=== PATIENT | male | born 1960 | race Caucasian/White ===

== ENCOUNTER → 2018-05-18 20:16 | Outpatient (CLI) | payer MEDICAID, SELFPAY | PROVIDERS: Referring Provider Nurse Practitioner Family | DX: G47.30 Sleep apnea, unspecified (principal) | CPT/HCPCS: 95810 ==

== ENCOUNTER 2018-05-26 13:49 | Emergency (ER) | payer MEDICAID, SELFPAY ==
[2018-05-26 13:49] VITALS: BP 145/101
[2018-05-26 13:50] VITALS: BP 162/102; PULSE 84; RESP 16; TEMP 36.7; O2SAT 95; BMI 31.1
[2018-05-26 14:38] VITALS: BP 169/100; PULSE 80; O2SAT 95
--- NOTE | 2018-05-26 15:23 | EKG12_ITS ---
Test Reason : HYPERTENSION/SOB Blood Pressure : / mmHG Vent. Rate : 074 BPM Atrial Rate : 074 BPM P-R Int : 164 ms QRS Dur : 106 ms QT Int : 404 ms P-R-T Axes : 070 080 049 degrees QTc Int : 448 ms Normal sinus rhythm Normal ECG Confirmed by CAMERON HAN, BRIANNA ([id number]), material expeditor BRITTNEY GALDAMEZ ([id number]) on 05/30/2018 9:17:13 AM Referred By: Valeria Tian Confirmed By:BRIANNA BARNES MD
--- NOTE | 2018-05-26 15:23 | CT_ITS ---
STUDY: CT BRAIN WITHOUT CONTRAST REASON FOR EXAM: Male, 58 years old. DISI. Hypertension. RADIATION DOSAGE (If Supplied By Facility): CTDIvol = ( 60.81 ) mGy, DLP = ( 1158.30 ) mGycm TECHNIQUE: Transaxial CT imaging of the brain was performed without administration of intravenous contrast material. Individualized dose optimization techniques were used for this CT. COMPARISON: None. FINDINGS: There is no acute bleed or infarct. There are normal white matter tracts. The ventricles are normal in configuration. There is no hydrocephalus. The visualized paranasal sinuses are clear. There are bilateral mastoid effusions. There is no skull fracture. CT/Brain/Head without Contrast IMPRESSION: No acute intracranial abnormality. Bilateral mastoid effusions. Electronically Signed: Alex Tripp, at 16:31 EST Tel , Service support ,
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
[2018-05-26 16:40] LABS: Absolute Lymphocyte Count 1.85 X10^3/ul (0.83-4.51); Absolute Neutrophil Count 2.7 X10^3/uL (2.0-7.7); Basophil# 0.03 X10^3/uL; Basophil% 0.6 % (0-1); Eosinophil# 0.19 X10^3/uL; Eosinophils% 3.6 % (0-5); Hematocrit 44.7 % (40-54); Hemoglobin 15.2 g/dl (13.0-16.5); Lymphocyte # 1.85 X10^3/ul (4.0); Lymphocyte % 35.1 % (19-41); Mean Corpuscular Hgb 30.8 pg (27.0-32.0); Mean Corpuscular Volume 90.5 fL (80-94); Mean Platelet Vol. 10.7 fl (6.2-12.0); Monocyte# 0.49 X10^3/uL; Monocyte% 9.3 % (0-10); Neutrophil % 51.2 % (47-70); Platelet Count 269 K/mm3 (150-450); RBC Distribution Width CV 13.8 % (11.6-14.6); RBC Distribution Width SD 45.3 fl (35.1-43.9); Red Blood Count 4.94 M/mm3 (4.6-6.2); White Blood Count 5.3 K/mm3 (4.4-11.0)
[2018-05-26 16:41] LABS: POSITIVE COUNT NO; POSITIVE DIFFERENTIAL NO; POSITIVE MORPHOLOGY NO
[2018-05-26 16:53] VITALS: BP 168/98; PULSE 86; RESP 29; O2SAT 94
[2018-05-26 16:53] LABS: AST(SGOT) 13 U/L (15-37); Alanine Aminotransfer ALT/SGPT 27 U/L (16-61); Alkaline Phosphatase 118 U/L (45-117); Anion Gap 7 (5-15); BUN 21 mg/dL (7-18); BUN/Creat Ratio 18.4 RATIO (10-20); Calcium,Total 9.5 mg/dL (8.5-10.1); Chloride 105 mmol/L (98-107); Creatinine, Serum 1.14 mg/dL (0.70-1.30); EST Glomerular Filtration Rate 70 mL/min (>60); Est Glom Filt Rate - Afr Amer 85 mL/min (>60); Estimated Creatinine Clearance 83.12 ml/min; Globulin 4.1 g/dL (2.2-4.2); Glucose 84 mg/dL (74-106); Potassium 4.3 mmol/L (3.5-5.1); Protein, Total 8.1 g/dL (6.4-8.2); Sodium Level 140 mmol/L (136-145)
[2018-05-26 17:02] LABS: Bacteria 0 SEEN /hpf (None Seen); Mucous, Urine 0 SEEN /hpf (<or=2+); Red Blood Cells-Urine 0 SEEN /hpf (0-5); Squamous Epithelial Cells - UA 0 SEEN /hpf (0-5); White Blood Cells 0 SEEN /hpf (0-5)
[2018-05-26 17:15] LABS: Color, Urine Yellow (Yellow); Glucose, Dipstick Normal (Normal); Ketone-Dipstick Negative (Negative); Leukocyte Esterase-Dipstick Negative /ul (Negative); Nitrite-Dipstick Negative (Negative); Occult Blood-Urine 25 /ul (Negative); Protein-Dipstick Negative (Negative); Specific Gravity, Urine 1.025 (1.002-1.030); Urine Bilirubin Dipstick Negative (Negative); Urine Clarity Clear (Clear); Urine Urobilinogen Normal (Normal)
[2018-05-26 18:16] VITALS: BP 156/93; PULSE 83; RESP 16; O2SAT 94
== END 2018-05-26 18:17 | disposition home or self-care (01) ==
PROVIDERS: Emergency Provider Emergency Medicine; Family Provider Nurse Practitioner Family; PCP Nurse Practitioner Family
DX: I10 Essential (primary) hypertension (principal); H74.8X3 Other specified disorders of middle ear and mastoid, bilateral; H92.03 Otalgia, bilateral; R11.2 Nausea with vomiting, unspecified; R06.02 Shortness of breath; M54.2 Cervicalgia; F41.9 Anxiety disorder, unspecified; G47.30 Sleep apnea, unspecified; Z72.0 Tobacco use; Z79.899 Other long term (current) drug therapy
CPT/HCPCS: 70450; 80053; 81001; 85025; 93005; 99284; A4216

== ENCOUNTER → 2018-05-29 13:02 | Outpatient (CLI) | payer MEDICAID, SELFPAY ==
[2018-05-26 13:50] VITALS: BMI 31.1
--- NOTE | 2018-05-29 13:07 | RAD_ITS ---
STUDY: X-RAY - ORBITS REASON FOR EXAM: Male, 58 years old. This study is being performed as a clearance examination for exclusion of orbital metal, prior to the performance of an MRI examination. TECHNIQUE: 2 view(s) of the orbits were obtained. COMPARISON: None. FINDINGS: Normal bilateral orbits without a metallic orbital foreign body. Normal visualized facial bones. Normal paranasal sinuses. The soft tissue structures are unremarkable. RAD/Orbits for Foreign Body IMPRESSION: No demonstrated metallic orbital foreign body. The patient is cleared for an MRI examination. Electronically Signed: Bebo Shaw MD at 18:33 EDT , Service support ,
== END ==
PROVIDERS: Family Provider Nurse Practitioner Family; PCP Nurse Practitioner Family; Referring Provider Psychiatry & Neurology Neurology; Visit Provider Psychiatry & Neurology Neurology
DX: Z01.818 Encounter for other preprocedural examination (principal)
CPT/HCPCS: 70030

== ENCOUNTER → 2018-06-08 15:59 | Outpatient (CLI) | payer MEDICAID, SELFPAY ==
[2018-05-26 13:50] VITALS: BMI 31.1
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
== END ==
PROVIDERS: Referring Provider Psychiatry & Neurology Neurology; Visit Provider Psychiatry & Neurology Neurology
DX: M54.16 Radiculopathy, lumbar region (principal)
CPT/HCPCS: 72148

== ENCOUNTER 2018-07-25 14:00 | Outpatient (RCR) | payer MEDICAID, SELFPAY ==
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
--- NOTE | 2018-10-10 18:53 | HP.PT.NRP ---
HP - Discharge Summary (1) - Patient Information MARYJANE RUIZ was seen in my office for initial evaluation on 06/16/18. The following Plan of Care was established for this patient: Initial Frequency: 3x /Week Initial Duration: 4-6 Weeks - Anticipated Interventions Patient/Client Instruction: Educate patient on: Condition, Plan of Care For the Purpose of:: To decrease pain, To increase ROM, To improve nutrient delivery to tissue, To improve muscle performance and motor function, To improve ability of physical actions for home/community/work/leisure Therapeutic Exercise to Include: Strength training, Postural training, Flexibilty training, Gait and locomotor training, Passive ROM, Active ROM, Scapular Strength/Stabilization For the Purpose of:: To decrease pain, To increase ROM, To improve nutrient delivery to tissue, To improve muscle performance and motor function, To increase tolerance to activity/condition/position, To improve gait and locomotor functions, To improve health of tissue, To improve safety with gait Manual Therapy Techniques to Include: Mobilization, Passive ROM, Soft tissue mobilization For the Purpose of:: To increase ROM This patient was last seen in our office 07/25/18. Pertinent comments regarding their Physical therapy will appear below: Pt seen 8 visits of plan of care and progressed nicely. He was to f/u one month later to ensure progress and d/c However, he did not attend that visit. at this point, it has been over two months and I will discontinue due to nonattendance. At this point I will be discontinuing this patient from physical therapy. I would be happy to see this patient again in the future if found appropriate by the physician. Thank you! Noe Bennett, DPT, OCS, CSCS
== END 2018-07-25 19:00 | disposition home or self-care (01) ==
LOC: PT 14:00
DX: S72.301D Unspecified fracture of shaft of right femur, subsequent encounter for closed fracture with routine healing (principal)
CPT/HCPCS: 97110; 97140; 97163; 97530

== ENCOUNTER → 2018-07-28 | Outpatient (CLI) | payer MEDICAID, SELFPAY ==
--- NOTE | 2018-07-28 09:31 | MRI_ITS ---
STUDY: MRI BRAIN WITH AND WITHOUT CONTRAST REASON FOR EXAM: Male, 58 years old. Anosmia, body numbness TECHNIQUE: Standardized multiplanar fat and water weighted pulse sequences were obtained. 22 IV Dotarem was administered for the contrast portion of the examination. COMPARISON: CT head 05/26/2018. FINDINGS: Normal size of the ventricles and extra-axial spaces for the patient's age. Normal white matter tracts of the supratentorial brain. Normal bilateral basal ganglia. Normal thalami. There is no extra-axial fluid accumulation. Normal flow voids within the major intracranial circulation suggesting patency by spin echo criteria. Normal venous enhancement. There is no enhancing intra-axial or extra-axial abnormality. Normal sella turcica, pituitary gland, infundibular stalk, optic chiasm and hypothalamus. Normal tectal plate and pineal gland. Normal midbrain, hellen and medulla. Normal cerebellum. Normal basal cisterns. Normal bilateral temporal bones. Normal bilateral internal auditory canals. No demonstrated orbital abnormality, within the constraints of a routine brain study. Normal visualized paranasal sinuses. Normal calvarium and skull base. Normal visualized soft tissue structures. Normal visualized upper cervical spine. MRI/Brain W/WO Contrast IMPRESSION: Normal unenhanced and enhanced MRI of the brain. Electronically Signed: Brea Stockton, at 14:23 EDT Tel , Service support ,
== END | disposition home or self-care (01) ==
LOC: MRI 09:26
PROVIDERS: Referring Provider Psychiatry & Neurology Neurology; Visit Provider Psychiatry & Neurology Neurology
DX: R20.2 Paresthesia of skin (principal)
CPT/HCPCS: 70553; A9575

== ENCOUNTER → 2018-10-08 | Outpatient (CLI) | payer MEDICAID, SELFPAY ==
[2018-08-16 11:56] VITALS: BMI 31.1
--- NOTE | 2018-10-08 08:06 | RAD_ITS ---
STUDY: X-RAY - LEFT FOOT CLINICAL: Male, 58 years old. Left foot pain TECHNIQUE: 3 view(s) of the foot. COMPARISON: None. FINDINGS: There is an enthesophyte involving the posterior superior calcaneus at the site of insertion of the Achilles tendon. Normal visualized subtalar, talonavicular, calcaneocuboid, tarsal and tarsometatarsal articulations. There is flattening of the second metatarsal head that can be congenital or result of prior AVN (Freiberg's disease). There is degenerative arthrosis of the metatarsophalangeal joint of the hallux . Normal tibial and fibular sesamoid bones. Normal interphalangeal joint of the great toe. Normal phalanges of the great toe. Normal second through fifth metatarsophalangeal joints. Normal interphalangeal joints and phalanges of the lesser toes. The soft tissue structures are unremarkable. RAD/Foot min 3 Views IMPRESSION: 1. Mild degenerative changes of first MTP joint. No erosive changes. 2. 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 Electronically Signed: Tong Jordan MD at 10:36 EDT , Service support ,
--- NOTE | 2018-10-08 08:06 | RAD_ITS ---
STUDY: X-RAY - RIGHT FOOT CLINICAL: Male, 58 years old. Right foot pain TECHNIQUE: 3 view(s) of the foot. COMPARISON: None. FINDINGS: Normal talus, calcaneus, and tarsal bones. Normal visualized subtalar, talonavicular, calcaneocuboid, tarsal and tarsometatarsal articulations. Normal metatarsi. There is degenerative arthrosis of the metatarsophalangeal joint of the hallux . Normal tibial and fibular sesamoid bones. Normal interphalangeal joint of the great toe. Normal phalanges of the great toe. Normal second through fifth metatarsophalangeal joints. Normal interphalangeal joints and phalanges of the lesser toes. The soft tissue structures are unremarkable. RAD/Foot min 3 Views IMPRESSION: Mild degenerative arthrosis of the first MTP joint. No erosive changes. Electronically Signed: Tong Jordan MD at 10:34 EDT , Service support ,
[2018-10-08 09:03] LABS: Hemoglobin A1c 5.8 % (4.2-6.3)
[2018-10-08 09:07] LABS: Erythrocyte Sedimentation Rate 14 mm/hr (0-20)
[2018-10-08 09:21] LABS: Rheumatoid Factor < 10.0 IU/mL (<15); Thyroid Stim Hormone (TSH) 0.67 uIU/mL (0.358-3.74); Uric Acid 5.6 mg/dL (3.5-7.2)
[2018-10-09 08:53] LABS: Vitamin B12 806 pg/mL (211-911)
[2018-10-09 09:17] LABS: Hepatitis C Antibody Non-Reactive (Nonreactive)
[2018-10-10 12:07] LABS: RNP Ab <0.2 AI (0.0-0.9); Smith Ab <0.2 AI (0.0-0.9)
[2018-10-10 16:08] LABS: PROEL- A/G Ratio 1.2 (0.7-1.7); PROEL- Albumin 3.8 g/dL (2.9-4.4); PROEL- Alpha-1 Globulin 0.2 g/dL (0.0-0.4); PROEL- Alpha-2 Globulin 0.7 g/dL (0.4-1.0); PROEL- Beta Globulin 1.1 g/dL (0.7-1.3); PROEL- Gamma Globulin 1.2 g/dL (0.4-1.8); PROEL- Globulin, Total 3.3 g/dL (2.2-3.9); PROEL- TOTAL PROTEIN 7.1 g/dL (6.0-8.5)
[2018-10-11 10:50] LABS: ANTINUCLEAR ANTIBODIES DIRECT Negative (Negative)
== END | disposition home or self-care (01) ==
LOC: RAD 07:58
PROVIDERS: Visit Provider Psychiatry & Neurology Neurology
DX: G62.9 Polyneuropathy, unspecified (principal); M79.671 Pain in right foot; M79.672 Pain in left foot; R20.2 Paresthesia of skin; R53.83 Other fatigue; R73.9 Hyperglycemia, unspecified
CPT/HCPCS: 36415; 73630; 82607; 82746; 83036; 84165; 84443; 84550; 85652; 86038; 86235; 86431; 86803

== ENCOUNTER → 2018-10-25 | Outpatient (CLI) | payer BC, SELFPAY ==
[2018-08-16 11:56] VITALS: BMI 31.1
[2018-10-28 10:04] LABS: Creatinine, Urine 1.68 g/L (0.30-3.00)
== END | disposition home or self-care (01) ==
LOC: LABSPEC 08:57
PROVIDERS: Referring Provider Psychiatry & Neurology Neurology; Visit Provider Psychiatry & Neurology Neurology
DX: G62.9 Polyneuropathy, unspecified (principal); M79.671 Pain in right foot; M79.672 Pain in left foot; R20.2 Paresthesia of skin; R53.83 Other fatigue; R73.9 Hyperglycemia, unspecified
CPT/HCPCS: 82175; 82570; 83655; 83825

== ENCOUNTER → 2022-03-16 | Outpatient (CLI) | payer BC, SELFPAY ==
[2022-03-16 10:42] LABS: Hematocrit 46.7 % (40-54); Hemoglobin 16.4 g/dL (13.0-16.5); Mean Corp Hgb Conc 35.1 g/dL (32-36); Mean Corpuscular Hgb 31.5 pg (27.0-32.0); Mean Corpuscular Volume 89.8 fL (80-94); Mean Platelet Vol. 10.2 fl (6.2-12.0); Platelet Count 314 K/mm3 (150-450); RBC Distribution Width CV 13.4 % (11.6-14.6); RBC Distribution Width SD 44.1 fl (35.1-43.9); White Blood Count 5.2 K/mm3 (4.4-11.0)
[2022-03-16 11:16] LABS: ALB/GLOB Ratio 0.9 RATIO (0.9-2.4); AST(SGOT) 13 U/L (15-37); Alanine Aminotransfer ALT/SGPT 23 U/L (16-61); Albumin, Serum 3.8 g/dL (3.2-5.0); Alkaline Phosphatase 69 U/L (45-117); Anion Gap 5 (5-15); BUN 15 mg/dL (7-18); Calcium,Total 9.4 mg/dL (8.5-10.1); Chloride 104 mmol/L (98-107); Creatinine, Serum 1.07 mg/dL (0.70-1.30); EST Glomerular Filtration Rate 75 mL/min (>60); Est Glom Filt Rate - Afr Amer 90 mL/min (>60); Globulin 4.2 g/dL (2.2-4.2); Glucose 127 mg/dL (74-106); Lipase 104 U/L (73-393); Potassium 4.4 mmol/L (3.5-5.1); Sodium Level 137 mmol/L (136-145)
== END | disposition home or self-care (01) ==
PROVIDERS: Referring Provider Nurse Practitioner Family; Visit Provider Nurse Practitioner Family
DX: R10.9 Unspecified abdominal pain (principal)
CPT/HCPCS: 36415; 80053; 83690; 85027

== ENCOUNTER → 2022-03-31 | Outpatient (CLI) | payer BC, SELFPAY ==
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
== END | disposition home or self-care (01) ==
LOC: CT 14:09
PROVIDERS: Visit Provider Nurse Practitioner Family
DX: C79.9 Secondary malignant neoplasm of unspecified site (principal); I70.0 Atherosclerosis of aorta; R63.4 Abnormal weight loss; R59.0 Localized enlarged lymph nodes; K57.90 Diverticulosis of intestine, part unspecified, without perforation or abscess without bleeding; K76.0 Fatty (change of) liver, not elsewhere classified; N28.1 Cyst of kidney, acquired; M16.0 Bilateral primary osteoarthritis of hip; K80.20 Calculus of gallbladder without cholecystitis without obstruction
CPT/HCPCS: 74177; Q9967

== ENCOUNTER 2022-04-06 06:30 | Day surgery (SDC) | payer BC, SELFPAY ==
[2022-04-06] VITALS (7 sets, daily range): BP systolic 93–135; BP diastolic 54–89; PULSE 70–84; RESP 16; TEMP 36.3–37.1; O2SAT 95–98; BMI 27.1
--- NOTE | 2022-04-06 06:37 | HP.PCM_ITS ---
History and Physical Date of Admission: 04/06/22 Intake Vital Signs ? 11/12/2109:57 04/02/2312:33 Height 6 ft 2 in 6 ft 1 in Weight: ? 215 lb 4 oz BMI ? 28.3 BP ? 162/91 H Blood Pressure Location ? Rt brachial Position ? Sitting Respiration ? 20 H Pulse ? 91 Pulse Source ? Monitor Temp ? 97.6 F L Temp Source ? Temporal Pulse Oximetry (%) ? 95 Oxygen Delivery Method ? 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 Christoph Henriquez MD) Hx of bladder cancer Hypertension Sleep apnea Surgical History?(Updated 04/02/22 @ 13:32 by Kendy Duckworth) History of neck surgery History of surgery on lower extremity Family History?(Updated 04/02/22 @ 13:33 by Kendy Duckworth) Mother Breast cancerFather Cancer Heart disease Diabetes Social History?(Updated 04/02/22 @ 13:33 by Kendy Duckworth) Smoking Status:? Current every day smoker alcohol intake:? never substance use type:? does not use HPI HPI HPI: Patient is a 61-year-old male here with epigastric pain and weight loss.? The patient reports he was inadvertently lost 30 pounds due to pain after eating.? He says the pain starts about a half after eating is in the epigastric region but sometimes getting a left upper quadrant or radiating to his back.? He denies nausea or vomiting.? This been going on for about 6 weeks. ROS General General: Yes weight change, appetite and fatigue; No colon cancer, breast cancer or weakness HEENT HEENT: No difficulty swallowing, eye injury, eye surgery, swollen glands or hoarseness Endo Endocrine: No thyroid disease, diabetes mellitus, thyroid cancer, Hair loss, heat intolerance or cold intolerance Skin Skin: No rash or changing moles Breast Breast: No left breast lump, right breast lump, nipple discharge, breast pain, abnormal mammogram, abnormal US or breast enlargement Musc Musculoskeletal: Yes back problems; No arthritis, rheumatoid arthritis, gout or joint pain Cardio Cardiovascular: Yes high blood pressure; No murmur, pacemaker, heart disease, atrial fibrillation, heart attack, heart stent, palpitations, shortness of breat with exertion or chest pain Psych Psychiatric: No depression, anxiety or hearing voices Resp Respiratory: No shortness of breath, Yes sleep apnea, No cough, No COPD, No a sthma, No emphysema and No wheezing Gastro Gastrointestinal: Yes abdominal pain, Yes nausea or vomiting, No diarrhea, No constipation, No blood in stool, No acid reflux, No hemorrhoids, No ulcers, No gallbladder problem and No black,tarry stools Steven Hematologic: No blood thinners, No blood disorders, No bleeding, No anemia and No blood clots Neuro Neurologic: No system reviewed and no additional complaints, except as documented, No as per HPI, No abnormal gait, No abnormal hearing, No abnormal movements, No abnormal speech, No behavioral changes, No burning sensations, No confusion, No convulsions, No disequilibrium, No dizziness, No localized weakness, No frequent falls, No headache(s), No lack of coordination, No loss of vision, No memory loss, No numbness, No other visual disturbances, No radicular pain, No restless legs, No sensory deficit, No syncope, No tingling, No tremor(s), No weakness and No other Exam Const General: cooperative Orientation: alert and oriented x3 HENKS Head: normal to inspection Neck Neck: normal visual inspection and full ROM Chest Chest palpation & inspection: normal inspection of the chest Resp Effort & Inspection: normal respiratory effort Auscultation: clear to auscultation bilaterally Cardio Rate: regular rate Rhythm: regular rhythm GI Inspection: non-distended Palpation: soft and nontender Skin General: no rashes or lesions noted Neuro General: patient alert and patient oriented x3 Extrem General: full ROM Psych Appearance: grossly normal Mental Status: mental status grossly normal Assessment and Plan Assessment and Plan (1) Weight loss, non-intentional: ?Status:?Acute (2) Epigastric pain: ?Status:?Acute (3) Cholelithiasis: ?Status:?Acute ?Qualifiers: ?Cholelithiasis location:?gallbladder??Cholecystitis presence:?without cholecystitis??Biliary obstruction:?without biliary obstruction? Qualified Code(s):?K80.20 - Calculus of gallbladder without cholecystitis without obstruction ? ? ? Orders: Orders Colonoscopy Today ? ? EGD Today ? ? Plan The patient has inadvertent weight loss and epigastric pain.? He had a CT scan which showed enlarged celiac lymph nodes.? Patient also had an ultrasound which showed cholelithiasis.? Given the enlarged celiac lymph nodes I would recommend to start with a EGD and colonoscopy.? If this comes back with no abnormality then I would recommend laparoscopic cholecystectomy. I explained endoscopy in detail to the patient.? I explained the risks including but not limited to stroke or heart attack with anesthesia, perforation of the GI tract, bleeding, infection.? I explained that any of these could necessitate further emergency surgery.? The patient understands and all questions were answered sufficiently.? The patient wishes to proceed with procedure. Christoph Henriquez MD Pager: [facility] [address] [place] [address] [address] [place] [address] Office: I have seen the patient and reviewed the H&P. There have been no changes
[2022-04-06] MEDS: Lactated Ringers 1,000 ML 15 ML IV (06:56)
--- NOTE | 2022-04-06 07:30 | IMM_PTH ---
PATIENT: MARYJANE RUIZ LOC: EN U#:[id number] AGE/SX: 61/M ROOM: RE04/06/[address]: Dr. Christoph Henriquez MD : 1960 BED: DIS: 04/06/2022 SPEC #: [id number] RECD: 04/06/22 13:33 STATUS: SARAH REQ #: [id number] EMMA: 04/06/22 07:[address]: Christoph Henriquez DEPT: IMMUNOHISTOCHEMISTRY RECD BY: Lynn Lawton ENTERED: 04/06/22 13:33 SP TYPE: IMMUNO OTHR DR: [facility] Tissues: B - Stomach, NOS C - Esophageal mucous membrane Procedures: H Pylori (initial) MSH2 (add) MLH-1 (add) MSH6 (add) Anti-PMS2 (add) HER2 YANG (add) P53 (add) KI-67 (initial) PHYSICIAN & INSTITUTION [place] [id number] SPECIMEN INFORMATION: Tissue Source: B ? Antrum biopsy, C - Gastroesophageal junction mass biopsy Clinical Info: Nonintentional weight loss, epigastric pain, cholelithiasis Specimen Number: [id number] B & C CPT code: 82016 x2, 12167 x6 METHODOLOGY: Deparaffinized sections of prefer/formalin-fixed tissue or PAP/DQ stained slides are incubated with monoclonal/polyclonal antibodies/oligonucleotide probes. Localization is made via biotin free immunoperoxidase method. Appropriate controls are performed and reacted as expected. Results on target cell population are indicated in the following table: RESULTS: ANTIBODY / CLONE RESULT Block B H Pylori (polyclonal) negative Block C Her-2neu (CB11) negative (0) MLH-1 (M1) positive MSH2 (25D12) positive MSH6 (44) positive PMS2 (GJB2183) positive Ki-67 (30-9) positive, high P53 (DO-7) positive (mutated) These tests were developed and their performance characteristics determined by [facility]. They may not have been cleared or approved by the U.S. Food and Drug Administration. The FDA has determined that such clearance or approval is not necessary. The above immunohistochemical/dualISH markers are ordered and reviewed by the Pathologist. INTERPRETATION: B. Antrum, biopsy: Negative for Helicobacter pylori organisms. C. Gastroesophageal junction mass, biopsy: Poorly differentiated adenocarcinoma. Result of Microsatellite Instability Study: Negative (no loss of mismatch protein; no microsatellite instability detected). SJ:piter 04/08/2022
--- NOTE | 2022-04-06 07:30 | EGD_PTH ---
PATIENT: MARYJANE RUIZ LOC: EN U#:[id number] AGE/SX: 61/M ROOM: RE04/06/[address]: Dr. Christoph Henriquez MD : 1960 BED: DIS: 04/06/2022 SPEC #: [id number] RECD: 04/06/22 11:50 STATUS: SARAH TRAMAIEN #: [id number] EMMA: 04/06/22 07:[address]: Christoph Henriquez DEPT: SURGICAL PATHOLOGY RECD BY: Zahida Puckett ENTERED: 04/06/22 12:44 SP TYPE: EGD BIOPSY OTHR DR: [facility] Tissues: A - Duodenum, NOS B - Gastric mucous membrane C - Stomach, NOS D - Sigmoid colon biopsy Procedures: Surgery Specimen Level IV HEADER OPERATION: [place]oscopy with polypectomy, [place] [place] PRE-OP DIAGNOSIS: Nonintentional weight loss, epigastric pain, cholelithiasis TISSUE SUBMITTED: A ? Duodenum biopsy, B ? Antrum biopsy for H. pylori and path, C ? Gastroesophageal junction mass biopsy, D ? Sigmoid polyps MICROSCOPIC DIAGNOSIS A. Duodenum, biopsy: A fragment of duodenal mucosa, no pathologic diagnosis. B. Antrum, biopsy: Mild gastritis. See microscopic description and comment. C. Gastroesophageal junction mass, biopsy: Poorly differentiated adenocarcinoma. See comment. D. Sigmoid polyps, biopsy: Tubular adenoma. Fragments of fecal material. SJ:piter 04/07/2022 COMMENT B. The results of immunohistochemistry for Helicobacter pylori will be reported separately ([id number]). C. Immunohistochemistry ([id number]) for microsatellite instability (mismatch repair of protein) will be performed and the results will be reported separately. This case is discussed with Dr. Henriquez by Dr. Peres on 04/07/2022. Case has been reviewed in consultation with Dr. Peres who concurs with the above diagnosis. IDC:AM MICROSCOPIC DESCRIPTION Slides are reviewed. B. The specimen shows fragments of gastric mucosa with chronic inflammatory cell infiltrates in the lamina propria consisting of lymphocytes and plasma cells, consistent with mild chronic gastritis. GROSS DESCRIPTION A - Received in fixative is one container labeled with the patient's name and designated duodenum biopsy. The specimen consists of one irregular fragment of light lomax soft tissue that measures 0.3 x 0.3 x 0.1 cm. The specimen is totally submitted in one cassette. B - Received in fixative is one container labeled with the patient's name and designated antrum biopsy. The specimen consists of two irregular fragments of light lomax soft tissue that in aggregate measure 0.5 x 0.3 x 0.1 cm. The specimen is totally submitted in one cassette. C - Received in fixative is one container labeled with the patient's name and designated GE junction mass biopsy. The specimen consists of multiple irregular fragments of light lomax soft tissue that in aggregate measure 1 x 0.2 x 0.1 cm. The specimen is totally submitted in one cassette. D - Received in fixative is one container labeled with the patient's name and designated sigmoid polyps. The specimen consists of multiple irregular fragments of light lomax soft tissue mixed with fecal material that in aggregate measure 1.2 x 0.5 x 0.3 cm. The specimen is totally submitted in one cassette. / SJ:rg 04/06/2022 TC:0 CPT: 86895 x4 ADDENDUM ADDENDUM ADDENDUM ADDENDUM ADDENDUM ADDENDUM 04/20/2022 08:48 ADDENDUM 04/20/2022 08:48 ADDENDUM 04/20/2022 08:48 ADDENDUM 04/20/2022 08:48 ADDENDUM 04/20/2022 08:48 PD-L1 (KEYTRUDA) IMMUNOHISTOCHEMICAL ANALYSIS FROM [facility] RESULTS: Tumor proportion score: <1% / Negative Please see complete report in e-chart or EMR
--- NOTE | 2022-04-06 08:11 | OP.EGD_ITS ---
Patient Name: Kenney Ferreira Procedure Date: 04/06/2022 6:57 AM Date of : 1960 Age: 61 Procedure: Upper GI endoscopy Indications: Epigastric abdominal pain Providers: Christoph Henriquez MD Referring MD: Christoph Henriquez MD Medicines: Monitored Anesthesia Care Complications: No immediate complications. Procedure: Pre-Anesthesia Assessment: - Prior to the procedure, a History and Physical was performed, and patient medications and allergies were reviewed. The patient's tolerance of previous anesthesia was also reviewed. The risks and benefits of the procedure and the sedation options and risks were discussed with the patient. All questions were answered, and informed consent was obtained. Prior Anticoagulants: The patient has taken no previous anticoagulant or antiplatelet agents. After reviewing the risks and benefits, the patient was deemed in satisfactory condition to undergo the procedure. After obtaining informed consent, the endoscope was passed under direct vision. Throughout the procedure, the patient's blood pressure, pulse, and oxygen saturations were monitored continuously. The gastroscope was introduced through the mouth, and advanced to the fourth part of duodenum. The upper GI endoscopy was accomplished without difficulty. The patient tolerated the procedure well. Scope In: 7:34:48 AM Scope Out: 7:41:59 AM Total Procedure Duration Time 0 hours 7 minutes 11 seconds Findings: A medium-sized, fungating mass with bleeding and stigmata of recent bleeding was found at the gastroesophageal junction. The mass was non-obstructing and not circumferential. Biopsies were taken with a cold forceps for histology. The stomach was normal. Biopsies were taken with a cold forceps for Helicobacter pylori testing. Localized erythematous mucosa was found in the first portion of the duodenum. Biopsies were taken with a cold forceps for histology. Impression: - Likely malignant esophageal tumor was found at the gastroesophageal junction. Biopsied. - Normal stomach. Biopsied. - Erythematous duodenopathy. Biopsied. Recommendation: - Discharge patient to home. - Resume previous diet. - Continue present medications. - Await pathology results. Procedure Code(s): --- Professional --- 80900, Esophagogastroduodenoscopy, flexible, transoral; with biopsy, single or multiple Diagnosis Code(s): --- Professional --- D49.0, Neoplasm of unspecified behavior of digestive system K31.89, Other diseases of stomach and duodenum R10.13, Epigastric pain CPT copyright 2017 [employer]. All rights reserved. The codes documented in this report are preliminary and upon target trimmer review may be revised to meet current compliance requirements. Christoph Henriquez MD 04/06/2022 8:11:44 AM This report has been signed electronically. Number of Addenda: 0 Note Initiated On: 04/06/2022 6:57 AM
--- NOTE | 2022-04-06 08:13 | OP.CCLET_ITS ---
04/06/2022 [facility] Re : [facility] This procedure was performed on Wednesday, April 06, 2022. 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 Biopsied. - Normal stomach. Biopsied. - Erythematous duodenopathy. Biopsied. Recommendations : - Discharge patient to home. - Resume previous diet. - Continue present medications. - Await pathology results. My findings are described in the full procedure note, which is enclosed. If I can be of further assistance, please feel free to contact me at Doctor phone number(s): , Work: . Sincerely, Christoph Henriquez MD 04/06/2022 8:11:44 AM This report has been signed electronically.
--- NOTE | 2022-04-06 08:16 | OP.CCLET_ITS ---
04/06/2022 [facility] Re : [facility] This procedure was performed on Wednesday, April 06, 2022. My impressions and recommendations are as follows: Impressions : - Two polyps in the sigmoid colon, removed with a hot snare. Resected and retrieved. - The examination was otherwise normal on direct and retroflexion views. Recommendations : - Discharge patient to home. - Resume previous diet. - Continue present medications. - Await pathology results. - Repeat colonoscopy in 5 years for surveillance. My findings are described in the full procedure note, which is enclosed. If I can be of further assistance, please feel free to contact me at Doctor phone number(s): , Work: . Sincerely, Christoph Henriquez MD 04/06/2022 8:15:30 AM This report has been signed electronically.
--- NOTE | 2022-04-06 08:16 | OP.COLON_ITS ---
Patient Name: Kenney Ferreira Procedure Date: 04/06/2022 7:44 AM Date of : 1960 Age: 61 Procedure: Colonoscopy Indications: Epigastric abdominal pain Providers: Christoph Henriquez MD Referring MD: Christoph Henriquez MD Medicines: Monitored Anesthesia Care Patient Profile: This is a 61 year old male. Refer to note in patient chart for documentation of history and physical. Last Colonoscopy: none. The patient's first colonoscopy is today. Complications: No immediate complications. Procedure: Pre-Anesthesia Assessment: - Prior to the procedure, a History and Physical was performed, and patient medications and allergies were reviewed. The patient's tolerance of previous anesthesia was also reviewed. The risks and benefits of the procedure and the sedation options and risks were discussed with the patient. All questions were answered, and informed consent was obtained. Prior Anticoagulants: The patient has taken no previous anticoagulant or antiplatelet agents. After reviewing the risks and benefits, the patient was deemed in satisfactory condition to undergo the procedure. - Prior to the procedure, a History and Physical was performed, and patient medications and allergies were reviewed. The patient's tolerance of previous anesthesia was also reviewed. The risks and benefits of the procedure and the sedation options and risks were discussed with the patient. All questions were answered, and informed consent was obtained. Prior Anticoagulants: The patient has taken no previous anticoagulant or antiplatelet agents. After reviewing the risks and benefits, the patient was deemed in satisfactory condition to undergo the procedure. After I obtained informed consent, the scope was passed under direct vision. Throughout the procedure, the patient's blood pressure, pulse, and oxygen saturations were monitored continuously. The colonoscope was introduced through the anus and advanced to the cecum, identified by appendiceal orifice and ileocecal valve. The colonoscopy was performed without difficulty. The patient tolerated the procedure well. The quality of the bowel preparation was good. Scope In: 7:45:17 AM Scope Withdrawal Time 0 hours 7 minutes 49 seconds Scope Out: 7:57:24 AM Total Procedure Duration Time 0 hours 12 minutes 7 seconds Findings: Two polyps were found in the sigmoid colon. These polyps were removed with a hot snare. Resection and retrieval were complete. The exam was otherwise without abnormality on direct and retroflexion views. Impression: - Two polyps in the sigmoid colon, removed with a hot snare. Resected and retrieved. - The examination was otherwise normal on direct and retroflexion views. Recommendation: - Discharge patient to home. - Resume previous diet. - Continue present medications. - Await pathology results. - Repeat colonoscopy in 5 years for surveillance. Procedure Code(s): --- Professional --- 81870, Colonoscopy, flexible; with removal of tumor(s), polyp(s), or other lesion(s) by snare technique Diagnosis Code(s): --- Professional --- D12.5, Benign neoplasm of sigmoid colon R10.13, Epigastric pain CPT copyright 2017 [employer]. All rights reserved. The codes documented in this report are preliminary and upon medical billing coder review may be revised to meet current compliance requirements. Christoph Henriquez MD 04/06/2022 8:15:30 AM This report has been signed electronically. Number of Addenda: 0 Note Initiated On: 04/06/2022 7:44 AM
== END 2022-04-06 08:46 | disposition home or self-care (01) ==
LOC: EN 06:32 → AC 06:33
PROVIDERS: Referring Provider Surgery; Visit Provider Surgery
PROC: 0DJD8ZZ Inspection of Lower Intestinal Tract, Via Natural or Artificial Opening Endoscopic (ICD-10-PCS; CPT 45378; principal; 2022-04-06 07:25)
DX: K80.20 Calculus of gallbladder without cholecystitis without obstruction (principal); F17.200 Nicotine dependence, unspecified, uncomplicated; D49.0 Neoplasm of unspecified behavior of digestive system; R10.13 Epigastric pain; K31.89 Other diseases of stomach and duodenum; D12.5 Benign neoplasm of sigmoid colon
CPT/HCPCS: 45385; 43239; 88305; 88341; 88342; J7120; J2405

== ENCOUNTER 2022-04-08 07:43 | Day surgery (SDC) | payer BC, SELFPAY ==
[2022-04-08] MEDS: Lactated Ringers 1,000 ML 15 ML IV (08:22)
[2022-04-08 08:24] VITALS: BP 129/76; PULSE 75; RESP 18; TEMP 37.1; O2SAT 98; BMI 27.4
--- NOTE | 2022-04-08 09:08 | PCM.OPRPT ---
Report of Operation Date of Procedure: 04/08/22 Pre-Operative Diagnosis: Esophageal cancer, need for vascular access for chemotherapy Post-Operative Diagnosis: Same Surgery/Procedure Performed:: Ultrasound and fluoroscopy guided right chest port placement utilizing right IJ Description of Procedure: After obtaining informed consent patient was brought back to the operating room MAC anesthesia was induced and the right chest and neck were prepped in normal sterile fashion. Ultrasound was used to evaluate both IJs and the right IJ was selected. Next, using a needle, the right IJ was accessed and a guidewire was passed on into the superior vena cava under fluoroscopy guidance. A small incision was made over the puncture site and the dilator introducer was placed over the guidewire. Next this was capped and the pocket was made for the port. 1% lidocaine with epinephrine was injected in the proposed port site. An incision was made with scalpel. Electrocautery was used to make a pocket under the skin and subcutaneous tissue. Hemostasis was obtained. Next, the catheter was tunneled up to the neck incision site and placed through the introducer. The peel-away introducer was removed and the position of the catheter was confirmed on fluoroscopy. Next, the catheter was trimmed and attached to the port with the locking device. Interrupted 2-0 Vicryl sutures were used to anchor the port to the chest wall and then the port was placed inside the pocket. The pocket was then flushed with saline and the port irrigated with saline. There was good blood return and the port flushed easily. Next, heparin was injected into the port. The skin was closed with subcutaneous interrupted 3-0 Vicryl sutures. A single 3-0 Vicryl sutures placed under the skin at the neck incision site. Steri-Strips were placed as well as op sites. Patient tolerated procedure well, was taken to PACU in stable condition. Chest x-ray will be obtained. Grafts/Implants Used: 8 [employer] Admit VTE Documentation VTE Mechan Device Prophylaxis: SCD's
--- NOTE | 2022-04-08 09:09 | PCM.HP.STD ---
HPI - General HPI Narrative MARYJANE RUIZ, is a 61 M who presents for port placement. Patient had EGD earlier this week and was found to have an esophageal mass. Biopsy revealed adenocarcinoma. [facility] Medical History (Updated 04/08/22 @ 09:[address] Christoph Henriquez MD) Back pain Bloated abdomen Cancer Cancer Chronic cough CPAP (continuous positive airway pressure) dependence Depression Easy bruising Esophageal cancer Gastric reflux Hx of bladder cancer Hypertension Hypertension Injury of head and neck Marijuana use Restless legs Sleep apnea Smoker Syncope Wears glasses Home Medications hydrochlorothiazide 12.5 mg capsule 12.5 mg PO DAILY #30 caps 05/26/18 [Rx Last Taken 04/07/22] cyclobenzaprine 10 mg tablet 10 mg PO HS 04/02/22 [History Last Taken 04/07/22] omeprazole 20 mg capsule,delayed release 20 mg PO DAILY 04/02/22 [History Last Taken 04/07/22] oxycodone 5 mg capsule 5 mg PO Q6H PRN Pain 04/07/22 [History Last Taken 04/07/22] Allergy/AdvReac Type Severity Reaction Status Date / Time No Known Allergies Allergy Verified 04/08/22 08:21 Family History (Updated 04/02/22 @ 13:33 by Kendy Duckworth) Mother Breast cancer Father Cancer Heart disease Diabetes Surgical History (Updated 04/07/22 @ 14:15 by Meenu Pyle) History of cystoscopy History of neck surgery History of surgery on lower extremity Hx of colonoscopy Social History (Updated 04/02/22 @ 13:33 by Kendy Duckworth) Smoking Status: Current every day smoker tobacco type: cigarettes alcohol intake: never substance use type: does not use ROS Constitutional Constitutional: Reports anorexia and weight loss; Denies fatigue or fever(s) Eyes Eyes: Denies blurry vision ENT HEENT: Denies abnormal hearing Cardiovascular Cardiovascular: Denies chest pain Respiratory/Chest Respiratory/Chest: Denies cough or dyspnea Gastrointestinal Gastrointestinal: Reports abdominal pain; Denies diarrhea or dysphagia Genitourinary Genitourinary: Denies difficulty urinating Musculoskeletal Musculoskeletal: Denies abnormal gait Integumentary Integumentary: Denies jaundice Neurologic Neurologic: Denies abnormal gait Psychiatric Psychiatric: Denies anxiety Vital Signs Vital Signs Vital Signs: 04/08/22 08:24 04/08/22 08:24 Temperature 98.7 F Temperature Source Temporal Pulse Rate 75 Respiratory Rate 18 Respiratory Pattern Normal Blood Pressure 129/76 H Blood Pressure Mean 93 Blood Pressure Source Monitor Blood Pressure Position Semi-Fowlers Blood Pressure Location Left Arm Pulse Ox 98 Oxygen Delivery Method Room Air Weight Weight: 214 lb Body Mass Index (BMI) 27.4 Physical Exam Const alert and oriented x3 HEENT normocephalic Eyes PERRL Resp normal respiratory effort and normal air movement Cardio regular rate and regular rhythm GI soft to palpation, non-tender and non-distended Extremity normal to inspection Assessment & Plan Assessment/Plan (1) Esophageal cancer: (2) Encounter for adjustment and management of vascular access device: PLAN: Plan Patient requires chest port for treatment of esophageal cancer. I discussed port placement with the patient in detail. I discussed the risks including but not limited to bleeding, infection, pneumothorax, line infection or DVT. Patient understands the risks and is willing to proceed. Christoph Henriquez MD Pager: [facility] [address] [place] [address], [address] [place] [address] Office:
[2022-04-08] MEDS: Cefazolin 2 GM in 0.9% Normal Saline 100 ML IV (09:15)
[2022-04-08] MEDS: Bupiv/Epi 0.5% Mpf 30 ML Vial (09:30)
[2022-04-08 09:54] VITALS: BP 125/79; BP 129/76; PULSE 76; RESP 16; TEMP 36.9; O2SAT 96
[2022-04-08 10:00] VITALS: BP 124/77; BP 129/76; PULSE 72; RESP 16; O2SAT 95
[2022-04-08 10:05] VITALS: BP 129/76; BP 130/77; PULSE 70; RESP 16; O2SAT 95
[2022-04-08 10:10] VITALS: BP 129/76; BP 136/77; PULSE 79; RESP 16; TEMP 36.7; O2SAT 98
--- NOTE | 2022-04-08 10:10 | RAD_ITS ---
STUDY: X-RAY CHEST REASON FOR EXAM: Male, 61 years old. Line placement -- in pacu TECHNIQUE: Single AP portable view of the chest. COMPARISON: None. FINDINGS: A right-sided madi catheter has been placed. The tip is at the junction of the superior vena cava and ready. EKG electrodes are seen. Hyperinflation. The lungs are clear. There is no demonstrated pleural abnormality. Normal size heart. Normal mediastinum and lorin. Normal visualized pulmonary arteries. Normal visualized aortic arch and descending thoracic aorta. There are degenerative changes of the visualized thoracic spine. Normal visualized ribs, clavicles, and shoulders. There is no demonstrated abnormality of the visualized soft tissue structures of the upper abdomen. RAD/CXR for Line Placement IMPRESSION: The tip of the right-sided madi catheter is at the junction of the superior vena cava and right atrium. Hyperinflation. The lungs are clear. Electronically Signed: Luis Duarte MD at 10:48 EST ,
--- NOTE | 2022-04-08 10:19 | EX.PCM.DISCH ---
Discharge Instructions Procedure Port-A-Cath Diet Discharge Diet: Light diet - advance as tolerated (Pain medication may cause nausea. You should typically eat light foods as you take your pain medication.) Activity Discharge Activity: Return to Normal Activity and May Shower (with your bandage in place in 1-2 days after surgery. DO NOT SHOWER WHEN YOUR PORT IS ACCESSED.) Dressing / Incision Call your doctor if your incision/area has: Continuous Slow Oozing, Sudden Increased Bleeding, Increased Pain/ Swelling, Increased Redness and Foul Smelling Discharge Call your doctor if you observe: Fever of 101 or Higher Remove Dressing in: 2 days Cleanse incision/area with: Soap & Water Follow Up Care Please Follow Up With: Christoph Henriquez MD When: as needed [phone] Test Results: Test results from this visit will be discussed in further detail at your follow-up appointment, if applicable. Discharge Plan Admission Attending Provider: Christoph Henriquez Primary Care Provider: [facility] Dulce Hester Discharge Orders/Prescriptions Prescriptions: No Action cyclobenzaprine 10 mg tablet 10 mg PO HS omeprazole 20 mg capsule,delayed release(DR/EC) 20 mg PO DAILY hydrochlorothiazide 12.5 MG capsule 12.5 mg PO DAILY Qty: 30 0RF oxycodone 5 mg Capsule 5 mg PO Q6H PRN (Reason: Pain) Referrals / Follow Up: [facility] Dulce Hester [Primary Care Provider] - Disposition Disposition (needs filled in before D/C Order can be placed): Home, Self Care
[2022-04-08 11:00] VITALS: BP 118/68; BP 129/76; PULSE 75; RESP 16; TEMP 36.9; O2SAT 94
== END 2022-04-08 11:08 | disposition home or self-care (01) ==
LOC: SDC 07:47 → AC 07:49
PROVIDERS: Referring Provider Surgery; Visit Provider Surgery
PROC: (CPT 36561; principal; 2022-04-08 09:15)
DX: C15.9 Malignant neoplasm of esophagus, unspecified (principal); I10 Essential (primary) hypertension; Z85.51 Personal history of malignant neoplasm of bladder
CPT/HCPCS: 36561; 00532; 71045; 77001; J7120; C1788